=== PATIENT | female | born 2005 | race Caucasian/White ===

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

== ENCOUNTER → 2025-02-13 | Outpatient (REF) | payer OTHER ==
[2025-02-13 16:55] LABS: Trichomonas vaginalis (AMP) NOT DETECTED (NEGATIVE)
[2025-02-13 17:18] LABS: GC DNA AMPLIFICATION NEGATIVE (NEGATIVE)
== END ==
LOC: M SFHCWAGY 15:16
PROVIDERS: ATTEND Nurse Practitioner Family
DX: Z12.4 Encounter for screening for malignant neoplasm of cervix (principal); Z11.3 Encounter for screening for infections with a predominantly sexual mode of transmission
CPT/HCPCS: 87661; 87810; 87850; G0123